=== PATIENT | female | born 1960 | race Caucasian/White ===

== ENCOUNTER 2019-03-20 21:48 | Inpatient (IN) | payer MEDICAID ==
[~2019-03-20] VITALS: Ht 167.6 cm; Wt 114.9 kg
[2019-03-20 22:55] LABS: BASOPHILS % (AUTO) 0.5 % (0-1); EOSINOPHILS # (AUTO) 0.1 X10'3 (0-0.9); EOSINOPHILS % (AUTO) 0.5 % (0-6); HEMATOCRIT 32.5 % (35.0-45.0); HEMOGLOBIN 10.9 g/dl (12.0-16.0); LYMPHOCYTES # (AUTO) 2.4 X10'3 (1.1-4.8); LYMPHOCYTES % (AUTO) 24.1 % (21-51); MEAN CORPUSCULAR HEMOGLOBIN 30.6 PG (27.0-31.0); MEAN CORPUSCULAR HGB CONC 33.5 g/dL (33.0-36.5); MEAN CORPUSCULAR VOLUME 91.3 FL (78-98); MONOCYTES # (AUTO) 0.7 X10'3 (0-0.9); MONOCYTES % (AUTO) 7.3 % (2-12); NEUTROPHILS # (AUTO) 6.7 X10'3 (1.8-7.7); NEUTROPHILS % (AUTO) 67.6 % (42-75); PLATELET COUNT 102 X10'3 (140-440); RED BLOOD COUNT 3.56 X10'6 (4.20-5.60); RED CELL DISTRIBUTION WIDTH 14.9 % (11.5-14.5); WHITE BLOOD COUNT 9.8 X10'3 (4.5-11.0)
[2019-03-20 23:07] LABS: PARTIAL THROMBOPLASTIN TIME 25 SECONDS (22-32)
[2019-03-20 23:17] LABS: ALBUMIN/GLOBULIN RATIO 0.9 (1.1-1.5); ALKALINE PHOSPHATASE 69 IU/L (46-116); ANION GAP 4 (8-16); BILIRUBIN,TOTAL 1.2 MG/DL (0.1-1.0); BLOOD UREA NITROGEN 18 MG/DL (7-18); BUN/CREATININE RATIO 12.3 (6.6-38.0); CHLORIDE 105 MMOL/L (99-107); CREATININE 1.46 MG/DL (0.40-0.90); GLUCOSE 75 MG/DL (70-104); LIPASE 174 U/L (73-393); SODIUM 141 MMOL/L (135-145); TOTAL CARBON DIOXIDE 32.5 MMOL/L (24-32); TOTAL PROTEIN 6.2 G/DL (6.4-8.2); eGFR 37 ML/MIN
[2019-03-20 23:39] LABS: CALCIUM 8.4 MG/DL (8.5-10.1)
[2019-03-20] MEDS ORDERED: NO HOME MEDS (23:44)
[2019-03-20 23:55] LABS: ALANINE AMINOTRANSFERASE 5372 U/L (12-78)
[2019-03-20 23:56] LABS: ASPARTATE AMINO TRANSFERASE > 7000 U/L (10-37)
[2019-03-20] MEDS ORDERED: heparin 25,000 UNIT/250ml bag 250 ML IV SCH (23:56)
[2019-03-21] VITALS (19 sets, daily range): BP systolic 121–183; BP diastolic 46–102
[2019-03-21] MEDS ORDERED: heparin 10,000 units/1 ML INJ IV ONE
[2019-03-21] MEDS ORDERED: heparin 10,000 units/1 ML INJ IV PRN
[2019-03-21] MEDS ORDERED: magnesium hydroxide 30ml (MOM) UD suspension PO PRN
[2019-03-21] MEDS ORDERED: HYDROcodone/acetaminophen 10/325mg tab PO PRN
[2019-03-21] MEDS ORDERED: morphine 2 MG/ML inj. syringe IV PRN ×2
[2019-03-21] MEDS ORDERED: HYDROcodone/acetaminophen 5mg/325mg tablet PO PRN
[2019-03-21] MEDS ORDERED: nitroGLYCERIN 0.4mg SUBLingual tab SL PRN
[2019-03-21] MEDS ORDERED: mag hydrox/Alum hydrox/simeth 30ml oral suspension PO PRN
[2019-03-21] MEDS ORDERED: acetaminophen 325mg tablet PO PRN ×2
--- NOTE | 2019-03-21 00:02 | NUR ---
Contacted [facility] to confirm that no anticoagulation has been provided to the patient. It has not. Also requested information regarding an acetaminophen level which was supposed to be drawn prior to transfer. At this time it is reported that the result is still pending.
[2019-03-21] MEDS ORDERED: enoxaparin 100mg/ml syringe SUBCUT ONE (00:20)
[2019-03-21] MEDS ORDERED: aspirin 325mg tablet PO ONE (00:20)
[2019-03-21 00:57] LABS: ACETAMINOPHEN < 2.0 UG/ML (10-30)
--- NOTE | 2019-03-21 01:00 | NUR ---
Patient up to commode and back to bed without incident. Patient positioned for comfort and lights dimmed.
[2019-03-21 01:13] LABS: MAGNESIUM 2.2 MG/DL (1.5-2.4)
[2019-03-21] MEDS ORDERED: normal saline 1000ML IV soln IVB ONE (02:10)
[2019-03-21] MEDS: normal saline 1000ml 1,000 ML IV SCH ×3 (02:14→18:55)
[2019-03-21] MEDS ORDERED: WATER IV ONE ×4 (02:15→08:00)
[2019-03-21] MEDS ORDERED: ACETYLCYSTEINE IV ONE ×4 (02:15→08:00)
[2019-03-21] MEDS ORDERED: magnesium Cl slow-release 64mg tablet PO PRN (02:15)
[2019-03-21] MEDS ORDERED: dextrose 50%-water 50ml dispensing syringe IV PRN ×2 (02:15)
[2019-03-21] MEDS ORDERED: DEXTROSE 5% IV ONE ×4 (02:15→08:00)
[2019-03-21] MEDS ORDERED: octreotide inj. 1,250 MCG in normal saline 250ml IV soln 243.75 ML IV SCH (02:15)
[2019-03-21] MEDS ORDERED: dextrose ORAL solution 15 GM/59 ML bottle PO PRN ×2 (02:15)
[2019-03-21] MEDS ORDERED: glucagon, human recombinant 1mg kit SUBCUT PRN (02:15)
[2019-03-21] MEDS ORDERED: ondansetron/PF 4mg/2ml inj IV PRN ×2 (02:15)
[2019-03-21] MEDS ORDERED: potassium Cl 20 mEq SR tablet PO PRN (02:15)
[2019-03-21] MEDS ORDERED: Neutra Phos packet PO PRN (02:15)
[2019-03-21 03:05] LABS: HEMOGLOBIN A1C 6.8 % (4.5-6.2)
[2019-03-21 03:10] LABS: AMYLASE 18 U/L (25-115); CHOL/HDL RATIO 3.7 (0.00-4.99); CHOLESTEROL 106 MG/DL (0-200); HDL CHOLESTEROL 29 MG/DL (35-60); LDL CHOLESTEROL 69 MG/DL (50-100); PHOSPHORUS 2.4 MG/DL (2.3-4.5); TRIGLYCERIDES 75 MG/DL (20-135)
[2019-03-21 03:24] LABS: BASOPHILS % (AUTO) 0.3 % (0-1); EOSINOPHILS # (AUTO) 0.1 X10'3 (0-0.9); HEMATOCRIT 31.2 % (35.0-45.0); HEMOGLOBIN 10.6 g/dl (12.0-16.0); LYMPHOCYTES # (AUTO) 2.2 X10'3 (1.1-4.8); LYMPHOCYTES % (AUTO) 24.1 % (21-51); MEAN CORPUSCULAR HEMOGLOBIN 30.8 PG (27.0-31.0); MEAN CORPUSCULAR HGB CONC 34.1 g/dL (33.0-36.5); MEAN CORPUSCULAR VOLUME 90.2 FL (78-98); MEAN PLATELET VOLUME 8.5 FL (7.4-10.4); MONOCYTES # (AUTO) 0.6 X10'3 (0-0.9); NEUTROPHILS # (AUTO) 6.3 X10'3 (1.8-7.7); NEUTROPHILS % (AUTO) 68.6 % (42-75); PLATELET COUNT 104 X10'3 (140-440); RED BLOOD COUNT 3.46 X10'6 (4.20-5.60); RED CELL DISTRIBUTION WIDTH 14.5 % (11.5-14.5); WHITE BLOOD COUNT 9.2 X10'3 (4.5-11.0)
[2019-03-21 03:36] LABS: PARTIAL THROMBOPLASTIN TIME 27 SECONDS (22-32)
[2019-03-21] MEDS ORDERED: LORazepam 2 mg/ml vial IV ONE ×2 (03:45→04:20)
--- NOTE | 2019-03-21 03:47 | NUR ---
forest technician to bedside but patient has suddenly become nauseated with vomiting that is persistant. Spoke to JOYCE Bragg who orders 5mg of compazine and an additional 5mg in 15 minutes if the first dose does not work.
[2019-03-21 03:48] LABS: CLARITY,URINE CLEAR (Clear); COLOR,URINE YELLOW (Yellow); GLUCOSE, URINE NEGATIVE (Neg); KETONES,URINE NEGATIVE (Neg); LEUKOCYTE ESTERASE ,URINE SMALL (Neg); NITRITES, URINE NEGATIVE (Neg); OCCULT BLOOD,URINE SMALL (Neg); PROTEIN,URINE NEGATIVE (Neg); UA COLLECTION TYPE CLN CATCH MIDSTREAM
[2019-03-21] MEDS ORDERED: proCHLORperazine 10 MG/2 ml inj IV PRN ×2 (03:50→04:25)
[2019-03-21 04:00] LABS: URINE AMPHETAMINE SCREEN NEGATIVE (Neg); URINE BARBITUATE SCREEN NEGATIVE (Neg); URINE BENZODIAZEPINES SCREEN NEGATIVE (Neg); URINE CANNABINOID SCREEN NEGATIVE (Neg); URINE COCAINE SCREEN NEGATIVE (Neg); URINE METHADONE SCREEN POSITIVE (Neg); URINE OPIATE SCREEN NEGATIVE (Neg); URINE PHENCYCLIDINE SCREEN NEGATIVE (Neg)
[2019-03-21 04:02] LABS: BACTERIA,URINE NONE SEEN /HPF (Neg); MUCUS STRANDS NONE SEEN /LPF (Neg); RBC,URINE 0 /HPF (0-2); SQUAMOUS EPITHELIAL CELL,UR FEW /LPF (FEW); WBC,URINE 0-4 /HPF (0-4)
--- NOTE | 2019-03-21 04:14 | NUR ---
Patient is resting more comfortably. automated access systems technician paged back to room.
--- NOTE | 2019-03-21 04:32 | NUR ---
Patient is sleeping comfortably and echo is in progress.
--- NOTE | 2019-03-21 05:06 | NUR ---
Patient arrived from ER via gurney to room 2042 B. Drowsy on oxygen @ 6L/NC. IV sites x2. Right AC #22G with octreotide infusing @25 mcg/hr. Left hand #20G with Acetadate infusing at 132ml/hr. NS TKO.
--- NOTE | 2019-03-21 05:10 | NUR ---
Patient in room ICU 2042. I have received report from Angel JORDAN and had the opportunity to ask questions and assume patient care. Patient arrived to floor via gurney, transferred to hospital bed with use of sliding board. Patient is drowsy from ativan administration in ER, but easily arousable to name. Alert/oriented x4. HR in low 70s in sinus rhythm, BP 154/96 via automatic cuff. Patient breathing at 13 breaths/min and saturating at 97% on 4L NC. All belongings placed in bedside drawer. Will continue to monitor patient.
[2019-03-21 05:42] LABS: ANION GAP 5 (8-16); BILIRUBIN,TOTAL 1.4 MG/DL (0.1-1.0); BLOOD UREA NITROGEN 19 MG/DL (7-18); CALCIUM 8.1 MG/DL (8.5-10.1); CHLORIDE 107 MMOL/L (99-107); CREATININE 1.46 MG/DL (0.40-0.90); GLUCOSE 108 MG/DL (70-104); POTASSIUM 3.5 MMOL/L (3.5-5.1); SODIUM 144 MMOL/L (135-145); TOTAL CARBON DIOXIDE 31.8 MMOL/L (24-32); TOTAL PROTEIN 6.1 G/DL (6.4-8.2); eGFR 37 ML/MIN
[2019-03-21 05:43] LABS: ALBUMIN 2.7 G/DL (3.4-5.0); ALBUMIN/GLOBULIN RATIO 0.8 (1.1-1.5); ALKALINE PHOSPHATASE 60 IU/L (46-116)
--- NOTE | 2019-03-21 06:00 | NUR ---
Patient's wallet with $20 vick taken to safe with patient's consent.
[2019-03-21 06:23] LABS: ALANINE AMINOTRANSFERASE 4702 U/L (12-78); ASPARTATE AMINO TRANSFERASE > 7000 U/L (10-37)
--- NOTE | 2019-03-21 06:34 | NUR ---
Problems reprioritized. Patient report given, questions answered & plan of care reviewed with Morales JORDAN.
--- NOTE | 2019-03-21 06:35 | NUR ---
Patient in room ICU 2042. I have received report from NIKKI Lind and had the opportunity to ask questions and assume patient care.
[2019-03-21] MEDS ORDERED: atorvastatin 20mg tablet PO SCH (08:00)
[2019-03-21] MEDS: lactulose 20gm/30ml cup PO SCH ×2 (08:49→16:20)
[2019-03-21] MEDS: aspirin 81mg tablet.DR PO SCH (08:50)
[2019-03-21] MEDS: metoprolol tartrate 12.5mg (1/2 tablet) PO SCH ×2 (08:50→20:00)
[2019-03-21] MEDS: docusate sod 100mg capsule PO SCH ×2 (08:50→19:32)
[2019-03-21] MEDS: pantoprazole 40mg Tablet.DR PO SCH (08:50)
[2019-03-21] MEDS ORDERED: NAPR-56 PO (09:08)
[2019-03-21] MEDS ORDERED: azithromycin/NS 500mg/250ml 250 ML IV SCH (10:00)
[2019-03-21] MEDS: CefTRIAXone 2gm/D5W 50ml 50 ML IV SCH (10:55)
[2019-03-21 11:30] LABS: ACETAMINOPHEN < 2.0 UG/ML (10-30); LACTATE DEHYDROGENASE 3708 U/L (81-234)
--- NOTE | 2019-03-21 18:19 | NUR ---
Patient in room ICU 2042. I have received report from Morales JORDAN and had the opportunity to ask questions and assume patient care. Patient resting in bed with eyes closed, in no apparent distress. HR in 60s in sinus rhythm with BP 142/86 via automatic cuff. Patient breathing at 12 breaths/min and saturating at 96% on 4L NC. Will continue to monitor patient.
[2019-03-21] MEDS: lactobacillus rhamnosus 10,000 MMU CELLS/CAPSULE PO SCH (19:32)
[2019-03-21 20:08] LABS: ASPARTATE AMINO TRANSFERASE 3469 U/L (10-37)
[2019-03-21 20:09] LABS: ALANINE AMINOTRANSFERASE 3550 U/L (12-78)
[2019-03-22] VITALS (17 sets, daily range): BP systolic 131–182; BP diastolic 60–89
[2019-03-22 00:39] LABS: ALANINE AMINOTRANSFERASE 3604 U/L (12-78); ASPARTATE AMINO TRANSFERASE 3041 U/L (10-37)
[2019-03-22] MEDS: lactulose 20gm/30ml cup PO SCH ×4 (00:46→16:02)
[2019-03-22 06:16] LABS: PARTIAL THROMBOPLASTIN TIME 25 SECONDS (22-32)
--- NOTE | 2019-03-22 06:26 | NUR ---
Problems reprioritized. Patient report given, questions answered & plan of care reviewed with Ely JORDAN.
[2019-03-22 06:27] LABS: BASOPHILS % (AUTO) 0.6 % (0-1); EOSINOPHILS # (AUTO) 0.3 X10'3 (0-0.9); EOSINOPHILS % (AUTO) 5.3 % (0-6); HEMOGLOBIN 10.8 g/dl (12.0-16.0); LYMPHOCYTES # (AUTO) 1.9 X10'3 (1.1-4.8); LYMPHOCYTES % (AUTO) 29.7 % (21-51); MEAN CORPUSCULAR HEMOGLOBIN 30.5 PG (27.0-31.0); MEAN CORPUSCULAR HGB CONC 33.7 g/dL (33.0-36.5); MEAN CORPUSCULAR VOLUME 90.6 FL (78-98); MEAN PLATELET VOLUME 8.7 FL (7.4-10.4); MONOCYTES # (AUTO) 0.4 X10'3 (0-0.9); MONOCYTES % (AUTO) 5.8 % (2-12); NEUTROPHILS # (AUTO) 3.7 X10'3 (1.8-7.7); NEUTROPHILS % (AUTO) 58.6 % (42-75); PLATELET COUNT 117 X10'3 (140-440); RED BLOOD COUNT 3.53 X10'6 (4.20-5.60); RED CELL DISTRIBUTION WIDTH 14.4 % (11.5-14.5); WHITE BLOOD COUNT 6.4 X10'3 (4.5-11.0)
--- NOTE | 2019-03-22 06:30 | NUR ---
Patient in room ICU 2042. I have received report from xiang and had the opportunity to ask questions and assume patient care.
[2019-03-22 06:47] LABS: ALBUMIN 2.5 G/DL (3.4-5.0); ALBUMIN/GLOBULIN RATIO 0.8 (1.1-1.5); ALKALINE PHOSPHATASE 71 IU/L (46-116); ANION GAP 8 (8-16); BILIRUBIN,TOTAL 1.1 MG/DL (0.1-1.0); BLOOD UREA NITROGEN 14 MG/DL (7-18); BUN/CREATININE RATIO 11.2 (6.6-38.0); CALCIUM 8.5 MG/DL (8.5-10.1); CHLORIDE 109 MMOL/L (99-107); CREATININE 1.25 MG/DL (0.40-0.90); GLUCOSE 77 MG/DL (70-104); MAGNESIUM 1.9 MG/DL (1.5-2.4); PHOSPHORUS 2.3 MG/DL (2.3-4.5); POTASSIUM 3.4 MMOL/L (3.5-5.1); SODIUM 148 MMOL/L (135-145); TOTAL CARBON DIOXIDE 31.4 MMOL/L (24-32); TOTAL PROTEIN 5.7 G/DL (6.4-8.2); eGFR 44 ML/MIN
[2019-03-22 06:58] LABS: ALANINE AMINOTRANSFERASE 3159 U/L (12-78); ASPARTATE AMINO TRANSFERASE 2396 U/L (10-37)
[2019-03-22] MEDS: metoprolol tartrate 12.5mg (1/2 tablet) PO SCH ×2 (08:00→21:00)
--- NOTE | 2019-03-22 08:00 | NUR ---
pt awake. smiling, states"i still feel goofy" aware of where she is and sort of why, reoriented to times,place, events.up to bsc- voided 900cc. steady with 2 people.
[2019-03-22] MEDS: pantoprazole 40mg Tablet.DR PO SCH (08:04)
[2019-03-22] MEDS: lactobacillus rhamnosus 10,000 MMU CELLS/CAPSULE PO SCH ×2 (08:04→21:06)
[2019-03-22] MEDS: aspirin 81mg tablet.DR PO SCH (08:04)
[2019-03-22] MEDS: docusate sod 100mg capsule PO SCH ×2 (08:04→21:06)
[2019-03-22] MEDS: normal saline 1000ml 1,000 ML IV SCH (08:06)
[2019-03-22 09:27] LABS: HBSAG SCREEN Negative (Negative); HEP A AB, IGM Negative (Negative); HEP B CORE AB, IGM Negative (Negative); HEPATITIS C ANTIBODY <0.1 s/co ratio (0.0-0.9)
[2019-03-22] MEDS: CefTRIAXone 2gm/D5W 50ml 50 ML IV SCH (10:13)
--- NOTE | 2019-03-22 11:41 | NUR ---
sandostatin and ivf dcd ok per dr wiseman for diet as she requested. awaiting room assignment in tele. spoke with by phone. checked on deann for him- beds available
--- NOTE | 2019-03-22 12:00 | NUR ---
report given and tx to 3022r
[2019-03-22 12:01] LABS: ALANINE AMINOTRANSFERASE 2936 U/L (12-78); ASPARTATE AMINO TRANSFERASE 1999 U/L (10-37)
[2019-03-22] MEDS: potassium Cl 20 mEq SR tablet PO PRN ×2 (12:09→16:03)
--- NOTE | 2019-03-22 12:40 | NUR ---
Received report from NIKKI Graves CICU Patient has arrived to Rm 2P A&O NAD.
--- NOTE | 2019-03-22 13:32 | NUR ---
Melinda Wills Rm [id number] arrived from [facility] @ [facility]. No BM x 1 wk, may we have order for suppository? NIKKI Mott PCU ext [phone]
[2019-03-22] MEDS ORDERED: bisacodyl 10mg suppository rectal RC PRN (14:05)
--- NOTE | 2019-03-22 16:24 | NUR ---
Page to Dr Babb (New pt Melinda Wills rm [id number] 1) c/o pain 7/10 back pain no analgesics ordered 2) current BP182/89 NIKKI Mott ext [phone]) Dr Babb stated to call asbestos removal supervisor
--- NOTE | 2019-03-22 16:30 | NUR ---
Phoned Dr Pedro regarding pts c/o back pain pain and high BP. He ordered Dilaudid and Hydralazine
[2019-03-22] MEDS: hyDRALAzine 10mg tablet PO SCH ×2 (16:57→20:59)
[2019-03-22] MEDS: HYDROmorphone inj. 0.5 MG/0.5 ML DISP.SYRIN IV PRN ×2 (17:04→21:26)
[2019-03-22 18:27] LABS: ALANINE AMINOTRANSFERASE 2802 U/L (12-78); ASPARTATE AMINO TRANSFERASE 1559 U/L (10-37)
--- NOTE | 2019-03-22 18:28 | NUR ---
Problems reprioritized. Patient report given, questions answered & plan of care reviewed with NIKKI Allen.
[2019-03-22] MEDS: diatr meglu/diatrizoate 30ml oral sol.-(3 dose) bottle PO SCH (21:05)
[2019-03-23] VITALS (8 sets, daily range): BP systolic 122–174; BP diastolic 67–90
[2019-03-23 00:13] LABS: ALANINE AMINOTRANSFERASE 2581 U/L (12-78); ASPARTATE AMINO TRANSFERASE 1262 U/L (10-37)
[2019-03-23] MEDS: hyDRALAzine 10mg tablet PO SCH ×4 (02:07→21:14)
[2019-03-23] MEDS ORDERED: lactulose 20gm/30ml cup PO PRN (02:15)
[2019-03-23 05:24] LABS: BASOPHILS # (AUTO) 0.1 X10'3 (0-0.2); BASOPHILS % (AUTO) 1.1 % (0-1); EOSINOPHILS # (AUTO) 0.4 X10'3 (0-0.9); HEMATOCRIT 31.7 % (35.0-45.0); HEMOGLOBIN 10.8 g/dl (12.0-16.0); MEAN CORPUSCULAR HEMOGLOBIN 30.7 PG (27.0-31.0); MEAN CORPUSCULAR HGB CONC 34.1 g/dL (33.0-36.5); MEAN CORPUSCULAR VOLUME 89.8 FL (78-98); MEAN PLATELET VOLUME 8.6 FL (7.4-10.4); MONOCYTES # (AUTO) 0.5 X10'3 (0-0.9); MONOCYTES % (AUTO) 7.3 % (2-12); NEUTROPHILS % (AUTO) 56.6 % (42-75); PLATELET COUNT 140 X10'3 (140-440); RED BLOOD COUNT 3.53 X10'6 (4.20-5.60); RED CELL DISTRIBUTION WIDTH 14.5 % (11.5-14.5); WHITE BLOOD COUNT 7.1 X10'3 (4.5-11.0)
[2019-03-23 05:27] LABS: PARTIAL THROMBOPLASTIN TIME 23 SECONDS (22-32)
[2019-03-23 05:32] LABS: ALBUMIN 2.7 G/DL (3.4-5.0); ALBUMIN/GLOBULIN RATIO 0.8 (1.1-1.5); ALKALINE PHOSPHATASE 77 IU/L (46-116); ANION GAP 5 (8-16); ASPARTATE AMINO TRANSFERASE 989 U/L (10-37); BLOOD UREA NITROGEN 11 MG/DL (7-18); BUN/CREATININE RATIO 9.3 (6.6-38.0); CALCIUM 8.4 MG/DL (8.5-10.1); CHLORIDE 109 MMOL/L (99-107); CREATININE 1.18 MG/DL (0.40-0.90); GLUCOSE 94 MG/DL (70-104); MAGNESIUM 1.8 MG/DL (1.5-2.4); PHOSPHORUS 2.6 MG/DL (2.3-4.5); POTASSIUM 3.5 MMOL/L (3.5-5.1); SODIUM 145 MMOL/L (135-145); TOTAL CARBON DIOXIDE 31.3 MMOL/L (24-32); TOTAL PROTEIN 5.9 G/DL (6.4-8.2); eGFR 47 ML/MIN
[2019-03-23 05:50] LABS: ALANINE AMINOTRANSFERASE 2242 U/L (12-78)
--- NOTE | 2019-03-23 06:17 | NUR ---
Patient in room PCU 3028. I have received report from NIKKI Allen and had the opportunity to ask questions and assume patient care.
[2019-03-23] MEDS: lactulose 20gm/30ml cup PO SCH ×2 (07:12→16:13)
[2019-03-23] MEDS: diatr meglu/diatrizoate 30ml oral sol.-(3 dose) bottle PO SCH ×2 (07:12→10:04)
[2019-03-23] MEDS: docusate sod 100mg capsule PO SCH ×2 (07:13→21:20)
[2019-03-23] MEDS: metoprolol tartrate 12.5mg (1/2 tablet) PO SCH ×2 (07:13→21:20)
[2019-03-23] MEDS: lactobacillus rhamnosus 10,000 MMU CELLS/CAPSULE PO SCH ×2 (07:13→21:14)
[2019-03-23] MEDS: aspirin 81mg tablet.DR PO SCH (07:13)
[2019-03-23] MEDS: pantoprazole 40mg Tablet.DR PO SCH (07:13)
[2019-03-23] MEDS: CefTRIAXone 2gm/D5W 50ml 50 ML IV SCH (09:47)
[2019-03-23] MEDS ORDERED: iohexol 300mg/ml 100ml inj. ONE (09:59)
[2019-03-23] MEDS: HYDROmorphone inj. 0.5 MG/0.5 ML DISP.SYRIN IV PRN ×2 (13:05→18:45)
--- NOTE | 2019-03-23 18:05 | NUR ---
Patient in room PCU 3028. I have received report from Jesse JORDAN and had the opportunity to ask questions and assume patient care.
--- NOTE | 2019-03-23 18:07 | NUR ---
Problems reprioritized. Patient report given, questions answered & plan of care reviewed with Helder RN.
--- NOTE | 2019-03-23 18:54 | NUR ---
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 [facility], [place] [address]88
--- NOTE | 2019-03-23 23:04 | NUR ---
Tele-neuro consult completed with Dr MORENO with recommendations to follow. Will discuss with hospitalist tomorrow.
[2019-03-24] VITALS (8 sets, daily range): BP systolic 126–174; BP diastolic 60–79
[2019-03-24] MEDS: lactulose 20gm/30ml cup PO SCH ×3 (00:04→15:25)
[2019-03-24] MEDS: hyDRALAzine 10mg tablet PO SCH ×4 (02:16→19:38)
--- NOTE | 2019-03-24 02:16 | NUR ---
[employer] BP 174/77 HR 56
--- NOTE | 2019-03-24 06:00 | NUR ---
Patient in room PCU 3028. I have received report from NIKKI Pendleton and had the opportunity to ask questions and assume patient care.
--- NOTE | 2019-03-24 06:24 | NUR ---
Problems reprioritized. Patient report given, questions answered & plan of care reviewed with Jesse JORDAN.
[2019-03-24 06:30] LABS: BASOPHILS # (AUTO) 0.1 X10'3 (0-0.2); BASOPHILS % (AUTO) 1.1 % (0-1); EOSINOPHILS # (AUTO) 0.4 X10'3 (0-0.9); HEMOGLOBIN 11.5 g/dl (12.0-16.0); LYMPHOCYTES # (AUTO) 2.2 X10'3 (1.1-4.8); LYMPHOCYTES % (AUTO) 35.2 % (21-51); MEAN CORPUSCULAR HEMOGLOBIN 30.1 PG (27.0-31.0); MEAN CORPUSCULAR HGB CONC 33.8 g/dL (33.0-36.5); MEAN CORPUSCULAR VOLUME 89.1 FL (78-98); MEAN PLATELET VOLUME 8.3 FL (7.4-10.4); MONOCYTES # (AUTO) 0.7 X10'3 (0-0.9); MONOCYTES % (AUTO) 10.7 % (2-12); NEUTROPHILS # (AUTO) 2.9 X10'3 (1.8-7.7); PLATELET COUNT 162 X10'3 (140-440); RED BLOOD COUNT 3.82 X10'6 (4.20-5.60); RED CELL DISTRIBUTION WIDTH 14.5 % (11.5-14.5); WHITE BLOOD COUNT 6.2 X10'3 (4.5-11.0)
[2019-03-24 06:31] LABS: ALANINE AMINOTRANSFERASE 1596 U/L (12-78); ALBUMIN 2.8 G/DL (3.4-5.0); ALBUMIN/GLOBULIN RATIO 0.8 (1.1-1.5); ALKALINE PHOSPHATASE 73 IU/L (46-116); ANION GAP 6 (8-16); ASPARTATE AMINO TRANSFERASE 367 U/L (10-37); BILIRUBIN,TOTAL 0.9 MG/DL (0.1-1.0); BLOOD UREA NITROGEN 9 MG/DL (7-18); BUN/CREATININE RATIO 8.2 (6.6-38.0); CALCIUM 8.6 MG/DL (8.5-10.1); CHLORIDE 107 MMOL/L (99-107); GLUCOSE 96 MG/DL (70-104); MAGNESIUM 1.8 MG/DL (1.5-2.4); PHOSPHORUS 3.5 MG/DL (2.3-4.5); POTASSIUM 3.2 MMOL/L (3.5-5.1); SODIUM 145 MMOL/L (135-145); TOTAL CARBON DIOXIDE 31.8 MMOL/L (24-32); TOTAL PROTEIN 6.1 G/DL (6.4-8.2); eGFR 51 ML/MIN
[2019-03-24 06:33] LABS: PARTIAL THROMBOPLASTIN TIME 27 SECONDS (22-32)
[2019-03-24] MEDS: metoprolol tartrate 12.5mg (1/2 tablet) PO SCH ×2 (07:00→19:37)
[2019-03-24] MEDS: docusate sod 100mg capsule PO SCH ×2 (07:00→19:38)
[2019-03-24] MEDS: potassium Cl 20 mEq SR tablet PO PRN ×3 (07:00→15:25)
[2019-03-24] MEDS: pantoprazole 40mg Tablet.DR PO SCH (07:00)
[2019-03-24] MEDS: lactobacillus rhamnosus 10,000 MMU CELLS/CAPSULE PO SCH ×2 (07:00→19:37)
[2019-03-24] MEDS: aspirin 81mg tablet.DR PO SCH (07:00)
[2019-03-24] MEDS: CefTRIAXone 2gm/D5W 50ml 50 ML IV SCH (09:44)
[2019-03-24] MEDS: apixaban 5mg tablet PO SCH ×2 (09:44→19:38)
--- NOTE | 2019-03-24 10:28 | NUR ---
PAGER ID: [phone] MESSAGE: [id number] Melinda Wills ambulated 300 feet without difficulty or issues. NIKKI Moilna Ext [phone]
--- NOTE | 2019-03-24 13:08 | NUR ---
PAGER ID: [phone] MESSAGE: [phone] [id number] Melinda Johann: Miryam the stroke nurse was thinking it would be beneficial to order a nicotine patch for Melinda. NIKKI Molina Ext [phone]
[2019-03-24 13:49] LABS: CHOL/HDL RATIO 6.8 (0.00-4.99); CHOLESTEROL 142 MG/DL (0-200); HDL CHOLESTEROL 21 MG/DL (35-60); LDL CHOLESTEROL 100 MG/DL (50-100); TRIGLYCERIDES 124 MG/DL (20-135)
[2019-03-24] MEDS: nicotine 14mg patch - 24hr TD SCH (15:25)
--- NOTE | 2019-03-24 18:07 | NUR ---
Orientee documentation: I have reviewed and agree with all interventions, assessments performed and documented by NIKKI Penaloza.
--- NOTE | 2019-03-24 18:08 | NUR ---
[place] Medication Administration: For this medication-pass time frame, all medication were reviewed, dispensed, administered and documented per hospital policy by NIKKI Penaloza.
--- NOTE | 2019-03-24 18:13 | NUR ---
Problems reprioritized. Patient report given, questions answered & plan of care reviewed with NIKKI Allen.
[2019-03-25] MEDS: lactulose 20gm/30ml cup PO SCH ×3 (00:23→15:26)
[2019-03-25 02:00] VITALS: BP 144/79
[2019-03-25] MEDS: hyDRALAzine 10mg tablet PO SCH ×3 (02:17→13:20)
[2019-03-25 05:17] LABS: BASOPHILS # (AUTO) 0.1 X10'3 (0-0.2); BASOPHILS % (AUTO) 0.8 % (0-1); EOSINOPHILS # (AUTO) 0.6 X10'3 (0-0.9); EOSINOPHILS % (AUTO) 8.4 % (0-6); HEMOGLOBIN 11.4 g/dl (12.0-16.0); LYMPHOCYTES # (AUTO) 2.4 X10'3 (1.1-4.8); LYMPHOCYTES % (AUTO) 32.6 % (21-51); MEAN CORPUSCULAR HEMOGLOBIN 30.2 PG (27.0-31.0); MEAN CORPUSCULAR HGB CONC 33.6 g/dL (33.0-36.5); MEAN CORPUSCULAR VOLUME 90.1 FL (78-98); MEAN PLATELET VOLUME 8.3 FL (7.4-10.4); MONOCYTES # (AUTO) 0.8 X10'3 (0-0.9); MONOCYTES % (AUTO) 11.4 % (2-12); NEUTROPHILS # (AUTO) 3.4 X10'3 (1.8-7.7); NEUTROPHILS % (AUTO) 46.8 % (42-75); PLATELET COUNT 164 X10'3 (140-440); RED BLOOD COUNT 3.78 X10'6 (4.20-5.60); RED CELL DISTRIBUTION WIDTH 14.9 % (11.5-14.5); WHITE BLOOD COUNT 7.3 X10'3 (4.5-11.0)
[2019-03-25 05:49] LABS: ALBUMIN 2.8 G/DL (3.4-5.0); ALBUMIN/GLOBULIN RATIO 0.8 (1.1-1.5); ALKALINE PHOSPHATASE 71 IU/L (46-116); ANION GAP 6 (8-16); ASPARTATE AMINO TRANSFERASE 150 U/L (10-37); BILIRUBIN,TOTAL 0.5 MG/DL (0.1-1.0); BLOOD UREA NITROGEN 11 MG/DL (7-18); CALCIUM 8.1 MG/DL (8.5-10.1); CHLORIDE 108 MMOL/L (99-107); CREATININE 1.37 MG/DL (0.40-0.90); GLUCOSE 142 MG/DL (70-104); MAGNESIUM 1.8 MG/DL (1.5-2.4); PHOSPHORUS 3.6 MG/DL (2.3-4.5); POTASSIUM 3.3 MMOL/L (3.5-5.1); SODIUM 145 MMOL/L (135-145); TOTAL CARBON DIOXIDE 31.4 MMOL/L (24-32); TOTAL PROTEIN 6.1 G/DL (6.4-8.2); eGFR 39 ML/MIN
[2019-03-25 05:59] LABS: PARTIAL THROMBOPLASTIN TIME 29 SECONDS (22-32)
[2019-03-25 06:00] VITALS: BP_SYST 114; BP_SYST 150; BP_SYST 152; BP_DIAS 62; BP_DIAS 76; BP_DIAS 85
--- NOTE | 2019-03-25 06:00 | NUR ---
Patient in room PCU 3028. I have received report from NIKKI Allen and had the opportunity to ask questions and assume patient care.
[2019-03-25 06:21] LABS: ALANINE AMINOTRANSFERASE 1075 U/L (12-78)
[2019-03-25] MEDS: aspirin 81mg tablet.DR PO SCH (08:52)
[2019-03-25] MEDS: potassium Cl 20 mEq SR tablet PO PRN ×2 (08:52→13:20)
[2019-03-25] MEDS: docusate sod 100mg capsule PO SCH (08:53)
[2019-03-25] MEDS: metoprolol tartrate 12.5mg (1/2 tablet) PO SCH (08:53)
[2019-03-25] MEDS: lactobacillus rhamnosus 10,000 MMU CELLS/CAPSULE PO SCH (08:53)
[2019-03-25] MEDS: nicotine 14mg patch - 24hr TD SCH (08:53)
[2019-03-25] MEDS: apixaban 5mg tablet PO SCH (08:53)
[2019-03-25] MEDS: pantoprazole 40mg Tablet.DR PO SCH (08:59)
[2019-03-25] MEDS: HYDROmorphone inj. 0.5 MG/0.5 ML DISP.SYRIN IV PRN (08:59)
[2019-03-25] MEDS ORDERED: METO25TA6 PO (10:23)
[2019-03-25] MEDS ORDERED: APIX5TAB3 PO (10:23)
[2019-03-25] MEDS ORDERED: LACT10SO32 PO (10:23)
[2019-03-25] MEDS ORDERED: NICO-631 TD (10:23)
[2019-03-25] MEDS ORDERED: ASPI-1071 PO (10:23)
[2019-03-25] MEDS: CefTRIAXone 2gm/D5W 50ml 50 ML IV SCH (10:30)
[2019-03-25 11:00] VITALS: BP 167/87
--- NOTE | 2019-03-25 14:04 | NUR ---
PAGER ID: [phone] MESSAGE: [id number] Melindaleti Freemanow: You wrote on the DC instruction don't take Eliquis until liver labs are normal, did you mean Lipitor? NIKKI Molina Ext [phone]
--- NOTE | 2019-03-25 14:59 | NUR ---
PAGER ID: [phone] MESSAGE: [id number] Melinda Wills: SBP 160 is that fine before DC? She will be taking Lopressor at home this evening. NIKKI Molina Ext [phone]
[2019-03-25 15:00] VITALS: BP 160/85
--- NOTE | 2019-03-25 15:01 | NUR ---
PAGER ID: [phone] MESSAGE: [id number] Melinda Wills: SBP 160 is that fine before DC? She will be taking Lopressor at home this evening. NIKKI Molina Ext [phone]
--- NOTE | 2019-03-25 15:56 | NUR ---
Discharged. IV and tele out. Educated on follow-up, liver testing, meds, stroke and stroke prevention and myocardial infarction. Stable for DC per MD.
--- NOTE | 2019-03-25 16:05 | NUR ---
Medications called in to [facility] in [place]
== END 2019-03-25 15:45 | disposition home or self-care (01) | DRG 720 ==
LOC: ER 21:49 → ICU 2S 03-21 04:56 → CMPBEDREQ 03-21 04:59 → PCU 3S 03-22 12:19
PROVIDERS: ADMIT Internal Medicine; ATTEND Internal Medicine
DX: A41.9 Sepsis, unspecified organism (principal); K72.00 Acute and subacute hepatic failure without coma; I21.4 Non-ST elevation (NSTEMI) myocardial infarction; N17.9 Acute kidney failure, unspecified; I66.9 Occlusion and stenosis of unspecified cerebral artery; J18.1 Lobar pneumonia, unspecified organism; K72.90 Hepatic failure, unspecified without coma; E66.01 Morbid (severe) obesity due to excess calories; R09.02 Hypoxemia; R74.0 Nonspecific elevation of levels of transaminase and lactic acid dehydrogenase [LDH]; E28.2 Polycystic ovarian syndrome; D64.9 Anemia, unspecified; M47.9 Spondylosis, unspecified; I48.92 Unspecified atrial flutter; E87.6 Hypokalemia; E87.1 Hypo-osmolality and hyponatremia; Z87.891 Personal history of nicotine dependence; Z90.710 Acquired absence of both cervix and uterus; Z68.41 Body mass index [BMI] 40.0-44.9, adult; Z90.711 Acquired absence of uterus with remaining cervical stump
CPT/HCPCS: 36415; 70544; 70551; 71045; 74177; 80053; 80061; 80074; 80305; 80329; 81001; 82140; 82150; 82948; 83010; 83036; 83605; 83615; 83690; 83735; 83880; 84100; 84145; 84443; 84450; 84460; 84484; 85025; 85610; 85730; 87040; 87081; 87088; 93005; 93306; 93880; 96365; 96372; 96375; 97110; 97116; 97161; 97530; 99291; G0378; J0132; J0456; J0696; J0780; J1170; J1650; J2060; J2354; J2405; J7050; J7060; J7070; Q9963; Q9967